=== PATIENT | female | born 1935 | race Hispanic/Latino ===

== ENCOUNTER → 2019-06-14 | Outpatient (CLI) | payer MEDICARE ==
[~2019-06-14] MED LIST: LEVOTHYROXINE PO; LISINOPRIL PO; METF-444 PO
== END | disposition home or self-care (01) ==
LOC: RAH 14:07
PROVIDERS: ATTEND Urology
DX: N20.0 Calculus of kidney (principal); I87.8 Other specified disorders of veins
CPT/HCPCS: 74018; 76100

== ENCOUNTER 2020-05-24 11:06 | Emergency (ER) | payer MEDICARE ==
[2020-05-24] MEDS ORDERED: ACETAMINOPHEN EXTRA STRENGTH 500 MG TABLET ONE (11:24)
== END 2020-05-24 15:16 | disposition home or self-care (01) ==
LOC: EDH 11:06
DX: S42.411A Displaced simple supracondylar fracture without intercondylar fracture of right humerus, initial encounter for closed fracture (principal); S32.501A Unspecified fracture of right pubis, initial encounter for closed fracture; S70.211A Abrasion, right hip, initial encounter; I10 Essential (primary) hypertension; E11.9 Type 2 diabetes mellitus without complications; W18.39XA Other fall on same level, initial encounter; Y93.01 Activity, walking, marching and hiking; Y92.89 Other specified places as the place of occurrence of the external cause; Y99.8 Other external cause status
CPT/HCPCS: 29105; 70450; 72125; 72192; 73030; 73080; 73090; 73521; 93005

== ENCOUNTER → 2020-10-16 | Outpatient (CLI) | payer MEDICARE | END | disposition home or self-care (01) | LOC: RAH 13:37 | PROVIDERS: ATTEND Family Medicine | DX: R60.9 Edema, unspecified (principal) | CPT/HCPCS: 93970 ==

== ENCOUNTER → 2020-11-06 | Outpatient (CLI) | payer MEDICARE | END | disposition home or self-care (01) | LOC: RAH 08:48 | PROVIDERS: ATTEND Family Medicine | DX: I50.9 Heart failure, unspecified (principal) | CPT/HCPCS: 93306; 93356 ==

== ENCOUNTER → 2023-02-19 | Outpatient (CLI) | payer MEDICARE | END | disposition home or self-care (01) | LOC: RAH 12:56 | PROVIDERS: ATTEND Family Medicine | DX: R90.82 White matter disease, unspecified (principal); G40.911 Epilepsy, unspecified, intractable, with status epilepticus; I70.0 Atherosclerosis of aorta | CPT/HCPCS: 70450 ==